=== PATIENT | male | born 1950 | race Caucasian/White ===

== ENCOUNTER 2024-12-30 17:22 | Emergency (ER) | payer MEDICARE, BC ==
[~2024-12-30] VITALS: Ht 180.3 cm; Wt 86.2 kg
[2024-12-30 18:29] VITALS: BP 131/77; TEMP 98.2; O2SAT 97
== END 2024-12-30 17:50 | disposition home or self-care (01) ==
LOC: ER 17:27
DX: S90.122A Contusion of left lesser toe(s) without damage to nail, initial encounter (principal); E11.9 Type 2 diabetes mellitus without complications; E78.5 Hyperlipidemia, unspecified; I10 Essential (primary) hypertension; W22.8XXA Striking against or struck by other objects, initial encounter; Y93.89 Activity, other specified; Y92.89 Other specified places as the place of occurrence of the external cause; Y99.8 Other external cause status
CPT/HCPCS: 73660; A4606; A4663